=== PATIENT | male | born 1995 | race Two or more races ===

== ENCOUNTER 2021-01-20 06:48 | Emergency (ER) | payer OTHER ==
[~2021-01-20] VITALS: Ht 160 cm; Wt 84.8 kg
== END 2021-01-20 09:20 | disposition home or self-care (01) ==
LOC: ER 06:48
DX: B34.9 Viral infection, unspecified (principal)

== ENCOUNTER 2023-07-06 23:00 | Emergency (ER) | payer OTHER ==
[~2023-07-06] VITALS: Ht 160 cm; Wt 81.6 kg
[2023-07-07] MEDS ORDERED: METHYLPREDNISOLONE SOD SUCC 125 MG VIAL IV STA (03:41)
[2023-07-07] MEDS ORDERED: ALBUTEROL SULFATE 3 ML/2.5 MG AMPUL.NEB IH SCH (03:45)
[2023-07-07 03:59] LABS: HEMATOCRIT 42.4 % (39.0-48.0); HEMOGLOBIN 14.7 g/dL (13-16.00); MEAN CORPUSCULAR HEMOGLOBIN 28.7 pg (27.00-32.0); MEAN CORPUSCULAR HGB CONC 34.6 g/dl (32.0-36.0); PLATELET COUNT 157 K/uL (150-450); RED BLOOD COUNT 5.11 M/uL (4.00-6.00); RED CELL DISTRIBUTION WIDTH 13.7 % (11.5-14.5)
[2023-07-07] MEDS ORDERED: ZYNCOF 20-400120 ML PO (05:00)
[2023-07-07] MEDS ORDERED: OSEL75CA PO (05:00)
[2023-07-07] MEDS ORDERED: ALBUTEROL2.5 MG/3 M IH (05:00)
== END 2023-07-07 05:06 ==
LOC: ER 23:01
PROVIDERS: General Practice
DX: J10.1 Influenza due to other identified influenza virus with other respiratory manifestations (principal)